=== PATIENT | female | born 1985 | race Caucasian/White ===

== ENCOUNTER 2021-01-29 10:55 | Outpatient (CLI) | payer OTHER ==
[2021-01-29 13:15] LABS: BHCG - Serum Negative (NEGATIVE); Pregs Control Background? CLEAR/WHITE (CLR/WHITE); Pregs Control Bar Appear? YES (CONTROL BAR)
[2021-01-30 11:54] LABS: SARS-CoV-2 PCR by NAA Not Detected (NotDetected)
== END 2021-01-29 10:56 | disposition home or self-care (01) ==
LOC: LABBT 10:55
PROVIDERS: ATTEND Surgery
DX: Z01.812 Encounter for preprocedural laboratory examination (principal); K80.20 Calculus of gallbladder without cholecystitis without obstruction; Z20.822 Contact with and (suspected) exposure to COVID-19
CPT/HCPCS: 84703; U0003; U0005

== ENCOUNTER 2021-02-05 11:03 | Outpatient (CLI) | payer OTHER ==
[2021-02-05 12:48] LABS: BHCG - Serum Negative (NEGATIVE); Pregs Control Background? CLEAR/WHITE (CLR/WHITE); Pregs Control Bar Appear? YES (CONTROL BAR)
[2021-02-06 00:50] LABS: SARS-CoV-2 PCR by NAA Not Detected (NotDetected)
== END 2021-02-05 11:04 | disposition home or self-care (01) ==
LOC: LABBT 11:03
PROVIDERS: ATTEND Surgery
DX: Z01.812 Encounter for preprocedural laboratory examination (principal); K80.20 Calculus of gallbladder without cholecystitis without obstruction; Z20.822 Contact with and (suspected) exposure to COVID-19
CPT/HCPCS: 84703; U0003; U0005

== ENCOUNTER 2021-02-10 07:02 | Day surgery (SDC) | payer OTHER ==
[2021-02-10] MEDS ORDERED: Midazolam HCl 2 mg/2 ml Vial ONE ×3 (09:53→17:15)
[2021-02-10] MEDS ORDERED: Metoprolol Tartrate 5 MG/5 ML VIAL ONE ×2 (10:50→14:23)
[2021-02-10] MEDS ORDERED: hydrALAZINE 20 MG/ML VIAL ONE ×3 (10:50→19:07)
[2021-02-10] MEDS ORDERED: Scopolamine 1.5 mg/72 hour Patch ONE (10:50)
[2021-02-10] MEDS ORDERED: Fentanyl 100 MCG/2 ML VIAL ONE ×5 (14:23→19:25)
[2021-02-10] MEDS ORDERED: Lidocaine 1% w/Epinephrine 1:100K 20 ML VIAL ONE (17:28)
[2021-02-10] MEDS ORDERED: Bupivacaine PF 0.5% 30 ML VIAL ONE (17:28)
[2021-02-10] MEDS ORDERED: Famotidine/PF 20 mg/2ml Vial ONE (17:53)
[2021-02-10] MEDS ORDERED: Rocuronium Bromide 10 MG/ML (10ML VIAL) ONE (17:55)
[2021-02-10] MEDS ORDERED: PROPOFOL 200 MG/20 ML VIAL ONE (17:55)
[2021-02-10] MEDS ORDERED: Ondansetron PF 4 MG/2 ML Vial ONE ×2 (17:55→19:55)
[2021-02-10] MEDS ORDERED: Dexamethasone 20 MG/5 ML VIAL ONE (17:55)
[2021-02-10] MEDS ORDERED: Succinylcholine 200 MG/10 ml SYRINGE FS ONE (17:55)
[2021-02-10] MEDS ORDERED: Lidocaine 1% PF 5 ML VIAL ONE (17:55)
[2021-02-10] MEDS ORDERED: Metoclopramide HCl 10 MG/2 ML VIAL ONE (17:55)
[2021-02-10] MEDS ORDERED: SUGAMMADEX SODIUM 200 MG/2 ML VIAL ONE (18:00)
[2021-02-10] MEDS ORDERED: Labetalol HCl 100 MG/20 ML VIAL ONE (18:59)
[2021-02-10] MEDS ORDERED: HYDROcodone/Acetaminophen 5/325 mg Tablet ONE (19:39)
== END 2021-02-10 20:24 | disposition home or self-care (01) ==
LOC: SDC 07:02
PROVIDERS: ATTEND Surgery
PROC: 0FT44ZZ Resection of Gallbladder, Percutaneous Endoscopic Approach (ICD-10-PCS; principal; 2021-02-10)
DX: K80.10 Calculus of gallbladder with chronic cholecystitis without obstruction (principal); K66.0 Peritoneal adhesions (postprocedural) (postinfection); E66.01 Morbid (severe) obesity due to excess calories; Z68.43 Body mass index [BMI] 50.0-59.9, adult; Z79.899 Other long term (current) drug therapy; Z88.2 Allergy status to sulfonamides; Z88.5 Allergy status to narcotic agent
CPT/HCPCS: 88304; J0360; J0690; J1100; J2250; J2405; J2704; J2765; J3010; S0020; S0028